=== PATIENT | male | born 1995 ===

== ENCOUNTER 2020-11-27 17:13 | Emergency (ER) | payer SELFPAY ==
[~2020-11-27] VITALS: Ht 182.9 cm; Wt 106.2 kg
[2020-11-27 17:13] VITALS: BP 148/88
== END 2020-11-27 17:40 | disposition left against medical advice (07) ==
LOC: M ED 17:13
DX: Z53.21 Procedure and treatment not carried out due to patient leaving prior to being seen by health care provider (principal)